=== PATIENT | female | born 1950 | race Caucasian/White ===

== ENCOUNTER → 2024-01-12 09:53 | Outpatient (REF) | payer MEDICARE, OTHER, SELFPAY | LOC: PAVMRI 09:53 | PROVIDERS: ATTENDING PHYSICIAN Orthopaedic Surgery; FAMILY PHYSICIAN Family Medicine | DX: M25.511 Pain in right shoulder (principal) | CPT/HCPCS: 73221 ==

== ENCOUNTER → 2024-01-15 06:56 | Outpatient (REF) | payer MEDICARE, OTHER, SELFPAY | LOC: MRI 3T 06:56 | PROVIDERS: ATTENDING PHYSICIAN Orthopaedic Surgery; FAMILY PHYSICIAN Family Medicine | DX: M79.671 Pain in right foot (principal) | CPT/HCPCS: 73718 ==

== ENCOUNTER 2024-02-26 20:49 | Emergency (ER) | payer MEDICARE, OTHER, SELFPAY ==
[2024-02-26 20:55] VITALS: BP 125/79
--- NOTE | 2024-02-26 21:55 | ED.GENMED ---
History of Present Illness
<Mildred Malloy PA-C - Last Filed: 02/27/24 00:47>
General
Chief Complaint: Wound Check/Suture Removal
Source: patient
Exam Limitations: none
Time Seen by Provider: 02/26/24 21:15
Nursing documentation reviewed up to this point in time: agreed with
Travel History
Have you had any contact with someone who has COVID-19?: No
Do you have any symptoms of coronavirus? Fever > 100 degrees, chills, cough, shortness of breath, sore throat, loss of taste or smell, muscle aches, or headache?: No
History of Present Illness
History of Present Illness:
Patient is a 73-year-old female approximately 14 hours postop from a right bunionectomy presenting with persistent bleeding through dressing. When patient was getting ready for bed she took off her walking cast shoe and noticed that blood had
soaked through her Wilfredo bandage. She came to the emergency department for further evaluation. Patient denies any pain, numbness/tingling in right foot, dizziness, lightheadedness, nausea, shortness of breath.
Patient had a bunionectomy performed by Dr. Rao at [facility] earlier this morning without any complications. She was discharged approximately 2 hours following procedure. Wounds were covered with gauze and wrapped with Wilfredo
bandage. She was placed in a walking shoe. Patient was instructed to leave bandage on for the next 2 weeks until she has next follow-up appointment. Patient was instructed that she is able to walk on right foot if only applying pressure to right
heel and not forefoot.
Patient was instructed take a baby aspirin for DVT prophylaxis following surgery. Otherwise�patient does not take any blood thinners or blood thinning medications daily. Patient has no history of bleeding disorders.
Past History
<Mildred Malloy PA-C - Last Filed: 02/27/24 00:47>
Past History
ED Past Medical History: HTN, Hypercholesterolemia and Other (headaches, migraines)
Social History
Tobacco: Smoker
Drug: None
Personal:
Living: with family
Review of Systems
<Mildred Malloy PA-C - Last Filed: 02/27/24 00:47>
Review of Systems
Allergies reviewed?: Yes
All Other Systems: ROS reviewed and negative except as documented in HPI and ROS
Phy Exam
<Mildred Malloy PA-C - Last Filed: 02/27/24 00:47>
Physical Exam
Physical Exam:
Vitals: Patient's vital signs are stable. Afebrile
General: Patient is well appearing, no acute distress. Nontoxic-appearing.
Skin: 3 cm incision on right dorsal foot second digit at DIP joint extending 3 cm proximally, with 4 Steri-Strips loosely approximating edges. Incision on right dorsal foot approximately 4 cm in length extending from MCP of first digit and
proximally with approximately 1.5 cm gaping wound edge at distal aspect, 5 Steri-Strips loosely approximating wound edges.
Head: Normocephalic, atraumatic
Eyes: Sclera nonicteric. EOMs intact. No nystagmus. Moist mucous membranes
Throat: Protecting airway
Neck: Normal ROM, no cervical spine tenderness, no meningismus
Cardiac: Regular rate and rhythm, no murmurs.
Pulm: Normal respiratory effort, no wheezes, rales, rhonchi heard on exam.
Abdomen: No abdominal tenderness.
Extremities: Incisions to right dorsal foot as noted above. Good distal pulses and bilateral lower extremities.
Neuro: AAOx3. CN II-XII intact. No focal neurologic deficits.
Psychiatric: Normal affect.
Course
<Mildred Malloy PA-C - Last Filed: 02/27/24 00:47>
Vital Signs
Initial and Last Documented VS:
Initial Vital Signs
Temp Pulse Resp BP Pulse Ox
98.0 F 62 18 125/79 100
02/26/24 20:55 02/26/24 20:55 02/26/24 20:55 02/26/24 20:55 02/26/24 20:55
Last Documented Vital Signs
Temp Pulse Resp BP Pulse Ox
98.0 F 62 18 125/79 100
02/26/24 20:55 02/26/24 20:55 02/26/24 20:55 02/26/24 20:55 02/26/24 20:55
<Ronnell Longo DO - Last Filed: 02/26/24 22:56>
Vital Signs
Initial and Last Documented VS:
Initial Vital Signs
Temp Pulse Resp BP Pulse Ox
98.0 F 62 18 125/79 100
02/26/24 20:55 02/26/24 20:55 02/26/24 20:55 02/26/24 20:55 02/26/24 20:55
Last Documented Vital Signs
Temp Pulse Resp BP Pulse Ox
98.0 F 62 18 12579 100
02/26/24 20:55 02/26/24 20:55 02/26/24 20:55 02/26/24 20:55 02/26/24 20:55
Procedures
<Mildred Malloy PA-C - Last Filed: 02/27/24 00:47>
Laceration Closure
Right Dorsal Foot:
Status of Wound: clean
Size of Wound in cm: 3
Description of Wound Edges: sharp
Revision/Debridement: routine- no revision
Skin Closure Material: other
Additional information:
Oozing /mild wound dehiscence from bunionectomy earlier this morning. Applied Steri-Strips and attempt to best approximate incision edges. Discussed with orthopedic surgeon on-call
Right First Toe:
Status of Wound: clean
Size of Wound in cm: 4
Description of Wound Edges: sharp
Revision/Debridement: routine- no revision
Additional information:
Oozing /wound dehiscence from bunionectomy earlier this morning. Applied Steri-Strips and attempt to best approximate incision edges. Discussed with orthopedic surgeon on-call
<Mildred Malloy PA-C - Last Filed: 02/27/24 00:47>
MDM/Problems Addressed
Differential Diagnosis Includes:
Not limited to: Postoperative bleeding, postoperative complication, wound dehiscence
MDM/Problems Addressed:
73-year-old female presenting approximately 14 hours status post right bunionectomy by Dr. Rao with persistent bleeding from incisions and complete saturation of dressing applied while in postop. Patient with very minimal pain. No fever or
chills. Patient is hemodynamically stable. Exam as above. She is well-appearing, in no apparent distress. Wilfredo bandage and gauze wrap of right foot saturated with blood. Did remove dressing which showed slight blood oozing from both lacerations
on right dorsal foot. There is an approximately 1.5 cm gaping likely wound dehiscence on medial incision. Did obtain photographs with patient consent and transmitted to orthopedic on-call, Dr. Forman who recommended applying Steri-Strips to
approximate as best as possible and apply thick dressing. They will have patient follow-up early next week.
Steri-Strips applied to both incisions in an attempt to approximate incision edges as best as possible. Bleeding controlled at this time. Nonstick gauze applied. Pressure dressing with gauze. Right foot wrapped in Wilfredo bandage. Patient remains
hemodynamically stable in emergency department with bleeding currently controlled. Stable for discharge at this time with close return precautions. Patient will follow-up with orthopedic tomorrow or Thursday. Advised to refrain from any
weightbearing. Elevate leg, ice. Take medication as prescribed. Patient instructed to return if bleeding persists and/or worsens. Patient and patient's son comfortable with plan. All questions answered.
Chronic conditions affecting care:
N/A
Acute Exacerbation and/or Progression of Chronic Illness:
N/A
<Mildred Malloy PA-C - Last Filed: 02/27/24 00:47>
*Pulse Oximetry
Patient hypoxic: no
*EKG
Interpreted by ED Provider?: NA
*Customer Account Representative Interpretation
Rate: Customer Account Representative- N/A
*Critical Care Note
Total Time (30-74mins, 75-104mins- exclusive of procedures): Not Applicable
<Mildred Malloy PA-C - Last Filed: 02/27/24 00:47>
Patient Management
Discussion with other providers: Microbiology Technician (Dr. Forman [facility])
ED Attending Note
<Mildred Malloy PA-C - Last Filed: 02/27/24 00:47>
-
Portions of this chart may have been created with voice recognition software.� Occasional wrong word or��sound alike� substitutions may have occurred due to the inherent limitations of voice recognition software.
<Ronnell Longo DO - Last Filed: 02/26/24 22:56>
ED Attending Note
Patient seen and examined by attending physician: Yes
I performed the substantive portion of visit, reviewed & personally made and approve the management plan that is documented in note by myself or ARACELY.: Yes
Discharge Plan
Departure
Patient Disposition: Home (Routine Discharge)
Date of Disposition: 02/26/24
Time of Disposition: 23:28
Patient with high blood pressure during this ER visit?: No
Discharge Problem:
Postoperative bleeding from incision
Prescriptions:
No Action
cbxvqymozr-jkvsoqpsvpacz-ncoh 1 TAB tablet
1 tab PO TID
pravastatin 20 MG tablet
20 mg PO QPM
ascorbic acid (vitamin C) [Vitamin C] 1,000 MG tablet
1,000 mg PO DAILY
alprazolam 0.5 MG tablet
0.5 mg PO BID
magnesium oxide 250 MG tablet
250 mg PO HS
calcium carbonate-vitamin D3 [Calcium 600 + D(3)] 1 EACH tablet
1 ea PO BID
acetaminophen-caffeine 1 TAB tablet
1 tab PO TIDPRN PRN (Reason: migraine)
alok Dalal B. lactis 1 EACH capsule
2 ea PO HS
Biocleanse 1 CAPSULE Capsule
2 cap PO BID
Plexus Supplement
1 packet PO DAILY
doxylamine succinate [Unisom (doxylamine)] 25 MG tablet
12.5 mg PO HS
ergocalciferol (vitamin D2) 50 MCG capsule
50 mcg PO BID
Slim
1 cap PO DAILY
Referrals:
Alex Monterroso MD [Family Provider] -
Shubham Rao DPM [Active] - Next open appointment
Activity Restrictions/Additional Instructions:
RETURN TO THE EMERGENCY DEPARTMENT WITH ANY PERSISTENT BLEEDING, INTRACTABLE PAIN, NUMBNESS/TINGLING IN RIGHT FOOT, DIZZINESS, LIGHTHEADEDNESS, SHORTNESS OF BREATH, FEVERS, CHILLS, WORSENING IN CURRENT SYMPTOMS, OR ANY OTHER CONCERNS
-As discussed you should contact your orthopedic surgeon for further evaluation/management. Keep a close eye on your bandage and incisions. If bleeding persists you will need to come back to the emergency department for further evaluation.
-You should keep right foot elevated. Apply ice as directed. You should refrain from any weightbearing on right lower extremity until you are seen by orthopedics.
-It is important stay well-hydrated. You should continue take all your medications as prescribed.
Interventions
Interventions:
*Risk Screen - Suicide Last Done: 02/26/24 21:54
*General Assessment Last Done: 02/26/24 20:55
*Neglect/Abuse Screening Last Done: 02/26/24 20:55
ED- Fall Risk Assessment Last Done: 02/26/24 21:54
*Nursing Disposition Last Done: 02/26/24 23:35
ED-Skin Assessment Last Done: 02/26/24 22:02
Discharge Date and Time
Discharge Date/Time: 02/26/24 23:38
Print Language: MAORI
== END 2024-02-26 23:38 | disposition home or self-care (01) ==
LOC: EMR 20:49
PROVIDERS: EMERGENCY PHYSICIAN Emergency Medicine; FAMILY PHYSICIAN Family Medicine
DX: L76.22 Postprocedural hemorrhage of skin and subcutaneous tissue following other procedure (principal); F17.200 Nicotine dependence, unspecified, uncomplicated
CPT/HCPCS: 99282

== ENCOUNTER → 2024-06-10 14:35 | Outpatient (REF) | payer MEDICARE, OTHER, SELFPAY | LOC: HWRAD 14:35 | PROVIDERS: ATTENDING PHYSICIAN Family Medicine | DX: R91.1 Solitary pulmonary nodule (principal) | CPT/HCPCS: 71250 ==

== ENCOUNTER → 2024-06-27 12:09 | Outpatient (REF) | payer MEDICARE, OTHER, SELFPAY | LOC: HWWDC 12:09 | PROVIDERS: ATTENDING PHYSICIAN Family Medicine | DX: Z12.31 Encounter for screening mammogram for malignant neoplasm of breast (principal) | CPT/HCPCS: 77063; 77067 ==

== ENCOUNTER → 2024-07-13 09:43 | Outpatient (REF) | payer MEDICARE, OTHER, SELFPAY ==
[2024-07-13 12:27] LABS: % Basophils 0.4 % (0-2); % Eosinophils 2.5 % (0-6); % Immature Granulocytes 0.2 % (0-0.5); % Lymphocytes 29.8 % (20.5-51.1); % Neutrophils 57.1 % (42.2-75.2); Absolute Eosinophils 0.1 10^3/uL (0-0.7); Absolute Lymphocytes 1.5 10^3/uL (1.2-3.4); Absolute Monocytes 0.5 10^3/uL (0.1-0.6); Absolute Neutrophils 2.9 10^3/uL (1.4-6.5); Hematocrit 38.6 % (37.0-47.0); Hemoglobin 12.6 g/dL (12.0-16.0); Mean Corp Hgb Conc. 32.6 g/dL (33.0-37.0); Mean Corpuscular Volume 94.8 fL (81.0-99.0); Mean Platelet Volume 9.6 fL (7.4-10.4); Nucleated Red Blood Cells % 0 %; Platelet Count 308 10^3/uL (130-400); Red Blood Cell Count 4.07 10^6/uL (4.20-5.40); White Blood Cell Count 5.1 10^3/uL (4.8-10.8)
[2024-07-13 13:08] LABS: Blood Urea Nitrogen 16 mg/dl (7-17); Calcium 9.6 mg/dl (8.4-10.2); Carbon Dioxide 29 mmol/L (22-30); Chloride 102 mmol/L (98-107); Glucose 86 mg/dl (70-99); Potassium 4.4 mmol/L (3.5-5.1); Sodium 142 mmol/L (135-145); eGFR > 60.00
== END ==
LOC: HWCARD 09:43
PROVIDERS: ATTENDING PHYSICIAN Orthopaedic Surgery; FAMILY PHYSICIAN Family Medicine
DX: Z01.818 Encounter for other preprocedural examination (principal)
CPT/HCPCS: 36415; 80048; 85025; 93005

== ENCOUNTER 2024-10-06 17:44 | Emergency (ER) | payer MEDICARE, OTHER, SELFPAY ==
[2024-10-06 18:05] VITALS: BP 137/96
--- NOTE | 2024-10-06 21:08 | ED.MUSCINJ ---
HPI-Injury
<PHILIP Fernandes - Last Filed: 10/06/24 21:42>
General
Chief Complaint: Musculo-Skeletal Complaint
Source: patient
Time Seen by Provider: 10/06/24 20:58
History of Present Illness-Injury
Initial Injury comments:
This is a 73 y/o female with PMH of arthritis who presents to the ED s/p fall with wrist pain. Pt was walking her dogs and tripped over uneven pavement and fell onto her side. She admits to increased swelling since the fall. She describes pain is
worse with ulnar and radial deviation. She recently had surgery on the R wrist by Dr. Sutherland for arthritis and is planning to have surgery on the L wrist in the near future, as well.
<Sandro Lawton DO - Last Filed: 10/06/24 21:42>
History of Present Illness-Injury
Is this injury a work related problem?: No
Is pt an associate of [facility]?: No
Past History
<PHILIP Fernandes - Last Filed: 10/06/24 21:42>
Past History
ED Past Medical History: HTN, Hypercholesterolemia and Other (headaches, migraines)
Social History
Tobacco: Smoker
Drug: None
Personal:
Living: with family
Review of Systems
<Sandro Lawton DO - Last Filed: 10/06/24 21:42>
Review of Systems
All Other Systems: Not applicable
Phy Exam
<PHILIP Fernandes - Last Filed: 10/06/24 21:42>
Physical Exam
Physical Exam:
Skin: Cleone, soft, well-hydrated; turgor with instant recoil
Head: Atraumatic, normocephalic
Chest and Lungs: muscle and respiratory effort symmetric without use of accessory muscles; vesicular breath sounds without adventitious sounds; even, quiet breathing
Heart: No lifts or heaves visible; regular rate and rhythm; No murmurs, rubs or gallops
PV: radial pulse intact bilaterally
Injury Course
<Latisha Duong, STPA - Last Filed: 10/06/24 21:42>
Orders/Labs/Results
Orders:
Orders
10/06/24 17:54
CR Wrist - Left Min 3 Views Urgent
Comment:
Reason For Exam: injury
10/06/24 18:04
Hand, Left 3 View [CR Hand - Left Min 3 Views] Urgent
Comment:
Reason For Exam: fell and injuried left hand
10/06/24 21:20
Oxycodone/Acetaminophen [Percocet 5/325] 1 tablet PO NOW STA
10/06/24 21:21
Sling Left-Treatment ONCE
Thumb Spica Left-Treatment ONCE
Ondansetron Orally Disint [Zofran Odt (Orally Disintegrating)] 4 mg PO NOW STA
10/06/24 21:25
Thumb Spica Left-Treatment ONCE
<Sandro Lawton, DO - Last Filed: 10/06/24 21:42>
Orders/Labs/Results
Orders:
Orders
10/06/24 17:54
CR Wrist - Left Min 3 Views Urgent
Comment:
Reason For Exam: injury
10/06/24 18:04
Hand, Left 3 View [CR Hand - Left Min 3 Views] Urgent
Comment:
Reason For Exam: fell and injuried left hand
10/06/24 21:20
Oxycodone/Acetaminophen [Percocet 5/325] 1 tablet PO NOW STA
10/06/24 21:21
Sling Left-Treatment ONCE
Thumb Spica Left-Treatment ONCE
Ondansetron Orally Disint [Zofran Odt (Orally Disintegrating)] 4 mg PO NOW STA
10/06/24 21:25
Thumb Spica Left-Treatment ONCE
Procedures
<Sandro Lawton DO - Last Filed: 10/06/24 21:42>
Splint Check
Splint checked by provider?: Yes
Splinting/Sling Placement
Left Thumb:
Procedure completed by: rn
Pre-splint extermity exam: neurovascular intact
Type of splint: thumb spica
<PHILIP Fernandes - Last Filed: 10/06/24 21:42>
*Critical Care Note
Total Time (30-74mins, 75-104mins- exclusive of procedures): Not Applicable
ED Attending Note
<PHILIP Fernandes - Last Filed: 10/06/24 21:42>
-
Portions of this chart may have been created with voice recognition software.� Occasional wrong word or��sound alike� substitutions may have occurred due to the inherent limitations of voice recognition software.
<Sandro Lawton DO - Last Filed: 10/06/24 21:42>
ED Attending Note
Patient seen and examined by attending physician: Yes
I performed the substantive portion of visit, reviewed & personally made and approve the management plan that is documented in note by myself or ARACELY.: Yes
ED Attending Note:
Seen with PA student examined independently, slip and fall left wrist pain history of osteoarthritis status post surgery on the right thumb by Dr. Sutherland recently, scheduled to have surgery on the left is sometime in the future, fairly swollen,
allergies noted x-ray reports noted no skin breakdown not sure what to make of the report of the foreign body, will immobilize treated analgesics have her follow-up with Dr. Sutherland
Discharge Plan
Departure
Patient Disposition: Home (Routine Discharge)
Date of Disposition: 10/06/24
Time of Disposition: 21:34
Patient with high blood pressure during this ER visit?: No
Condition: Good
Covid-19: Not Applicable
Discharge Problem:
Acute wrist pain
Instructions: Muscle and Bone Pain (DC), Sprain (DC), Splint Care
Prescriptions:
New
oxycodone 5 mg tablet
5 mg PO Q6H PRN (Reason: Pain) Qty: 14 0RF
ondansetron 4 mg tablet,disintegrating
4 mg PO Q8H PRN (Reason: nausea and vomiting) Qty: 10 0RF
No Action
nntamiiuxf-nafdfhmgclhte-xoew 1 TAB tablet
1 tab PO TID
pravastatin 20 MG tablet
20 mg PO QPM
ascorbic acid (vitamin C) [Vitamin C] 1,000 MG tablet
1,000 mg PO DAILY
alprazolam 0.5 MG tablet
0.5 mg PO BID
magnesium oxide 250 MG tablet
250 mg PO HS
calcium carbonate-vitamin D3 [Calcium 600 + D(3)] 1 EACH tablet
1 ea PO BID
acetaminophen-caffeine 1 TAB tablet
1 tab PO TIDPRN PRN (Reason: migraine)
L.acidoph,paracasei,B.animalis 1 EACH capsule
2 ea PO HS
Biocleanse 1 CAPSULE Capsule
2 cap PO BID
Plexus Supplement
1 packet PO DAILY
doxylamine succinate [Unisom (doxylamine)] 25 MG tablet
12.5 mg PO HS
ergocalciferol (vitamin D2) 50 MCG capsule
50 mcg PO BID
Slim
1 cap PO DAILY
Referrals:
Alex Monterroso MD [Family Provider] -
Christopher Sutherland MD [Active] - Follow up in 5-7 days
Interventions
Interventions:
*Risk Screen - Suicide Last Done: 10/06/24 18:01
*Neglect/Abuse Screening Last Done: 10/06/24 18:01
ED-Musculoskeletal Assessment Last Done: 10/06/24 21:02
Discharge Date and Time
Print Language: ESTONIAN
[2024-10-06] MEDS: PERCOCET 5/325 1 TABLET PO (21:37)
[2024-10-06] MEDS: ZOFRAN ODT (ORALLY DISINTEGRATING) 4 MG PO (21:37)
== END 2024-10-06 21:45 | disposition home or self-care (01) ==
LOC: EMR 17:44
PROVIDERS: EMERGENCY PHYSICIAN Emergency Medicine; FAMILY PHYSICIAN Family Medicine
DX: M25.532 Pain in left wrist (principal); W01.0XXA Fall on same level from slipping, tripping and stumbling without subsequent striking against object, initial encounter; Y93.01 Activity, walking, marching and hiking; I10 Essential (primary) hypertension; E78.00 Pure hypercholesterolemia, unspecified; F17.200 Nicotine dependence, unspecified, uncomplicated
CPT/HCPCS: 99283; 29125; 73110; 73130

== ENCOUNTER → 2025-07-31 08:36 | Outpatient (REF) | payer MEDICARE, OTHER, SELFPAY | LOC: HWWDC 08:36 | PROVIDERS: ATTENDING PHYSICIAN Family Medicine | DX: Z12.31 Encounter for screening mammogram for malignant neoplasm of breast (principal) | CPT/HCPCS: 77063; 77067 ==

== ENCOUNTER → 2025-08-01 10:20 | Outpatient (REF) | payer MEDICARE, OTHER, SELFPAY | LOC: HWRAD 10:20 | PROVIDERS: ATTENDING PHYSICIAN Family Medicine | DX: R91.1 Solitary pulmonary nodule (principal); I77.810 Thoracic aortic ectasia | CPT/HCPCS: 71250 ==

== ENCOUNTER → 2025-08-18 13:49 | Outpatient (REF) | payer MEDICARE, OTHER, SELFPAY | LOC: HWRCS 13:49 | PROVIDERS: ATTENDING PHYSICIAN Family Medicine | DX: I31.39 Other pericardial effusion (noninflammatory) (principal) | CPT/HCPCS: 93306 ==